=== PATIENT | male | born 1960 | race Caucasian/White ===

== ENCOUNTER 2018-05-22 21:17 | Emergency (ER) | payer BC ==
[2018-05-22 21:21] VITALS: BP 147/99
--- NOTE | 2018-05-22 21:24 | ER Report ---
History and Physical Time Seen By MD: 21:20 HPI/ROS CHIEF COMPLAINT: Back pain HISTORY OF PRESENT ILLNESS: 58-year-old male presents ambulatory to the ER complaining of right scapular back pain. Patient was chopping wood when he felt a tearing sensation in his upper back. Patient's been trying ibuprofen and some leftover Tylenol with Codeine that his doctor prescribes for torn right rotator cuff. He rarely uses them. His doctor advises surgery for repair of the rotator cuff. Patient's been reluctant. Patient notes no difficulty breathing. Patient notes no fever or chills. Patient denies dysuria , frequency or hematuria. Patient points to the right scapular muscles. He notes aggravation of pain with movement of his shoulder and trunk. REVIEW OF SYSTEMS: Respiratory: No cough, no dyspnea. Cardiovascular: No chest pain, no palpitations. Gastrointestinal: No vomiting, no abdominal pain. Musculoskeletal: As above Allergies: Coded Allergies: naproxen (Verified Adverse Reaction, Unknown, 05/22/18) ANXIOUS Home Meds Active Scripts Methocarbamol (ROBAXIN-750) 750 Mg Tablet, 1-2 TAB PO TID Y for muscle spasm relief, #20 Prov:MAUREEN CHOW DO 05/22/18 Hydrocodone Bit/Acetaminophen (NORCO 10-325 TABLET) 1 Each Tablet, 1 EACH PO Q4H Y for PAIN, #12 Prov:MAUREEN CHOW DO 05/22/18 Past Medical/Surgical History Right rotator cuff tear, total knee replacement Reviewed Nurses Notes: Yes Old Medical Records Reviewed: Yes Constitutional Vital Sign - Last 24 Hours 05/22/18 21:21 Temp 98.0 Pulse 64 Resp 18 B/P (MAP) 147/99 Pulse Ox 96 O2 Delivery Room Air Physical Exam General Appearance: The patient is alert, has no immediate need for airway protection and no current signs of toxicity. Vital signs stable, afebrile, pulse ox normal Eyes: Pupils equal and round no injection. Respiratory: Chest is non tender, lungs are clear to auscultation. No chest wall tenderness Cardiac: regular rate and rhythm Gastrointestinal: Abdomen is soft and non tender, no masses, bowel sounds normal. Musculoskeletal: Neck: Neck is supple and non tender. Back: Palpation of the thoracic paraspinous musculature reveals tenderness on the right and around the scapular muscles extending into the right trapezius muscle. There is no tenderness on palpation of the right shoulder Extremities have full range of motion and are non tender. Skin: No rashes or lesions. DIFFERENTIAL DIAGNOSIS: After history and physical exam differential diagnosis was considered for sprain, strain, contusion, dislocation, muscle tear, back strain Medical Decision Making ED Course/Re-evaluation ED Course Patient was admitted to an examination room. H&P was done. The differential diagnosis was considered. On clinical examination. Patient has muscular pain on examination. Patient is no conical signs of intrathoracic problem such as pneumonia or pulmonary embolism. She'll be treated with Robaxin and [place] for pain relief. He is advised to maximize ibuprofen to 600 mg 3 times daily with food. Patient's advised heating pad to help the muscles relax. Patient advised to follow-up with primary care. Upon returning home. Decision to Disposition Date: May 22, 2018 Decision to Disposition Time: 21:32 Depart Departure Latest Vital Signs Vital Signs Date Time Temp Pulse Resp B/P (MAP) Pulse Ox O2 Delivery O2 Flow Rate FiO2 05/22/18 21:21 98.0 64 18 147/99 96 Room Air Impression: Primary Impression: Strain of thoracic spine Additional Impression: Rotator cuff tear, right Condition: Improved Disposition: HOME OR SELF-CARE New Scripts Methocarbamol (ROBAXIN-750) 750 Mg Tablet 1-2 TAB PO TID Y for muscle spasm relief, #20 Prov: MAUREEN CHOW DO 05/22/18 Hydrocodone Bit/Acetaminophen (NORCO 10-325 TABLET) 1 Each Tablet 1 EACH PO Q4H Y for PAIN, #12 Prov: MAUREEN CHOW DO 05/22/18 Patient Instructions: Thoracic Back Strain (ED) Additional Instructions: Continue ibuprofen 200 mg 3-4 tablets 3 times a day with food You warm or hot compresses to the affected back area Follow-up with your primary care doctor upon returning home to [place] Problem Qualifiers Primary Impression: Strain of thoracic spine Encounter type: initial encounter Qualified Codes: S29.019A - Strain of muscle and tendon of unspecified wall of thorax, initial encounter Additional Impression: Rotator cuff tear, right Rotator cuff tear extent: unspecified tear extent Qualified Codes: M75.101 - Unspecified rotator cuff tear or rupture of right shoulder, not specified as traumatic MAUREEN CHOW DO May 22, 2018 21:24
[2018-05-22] MEDS ORDERED: HYDR-4305 PO (21:35)
[2018-05-22] MEDS ORDERED: METH-543 PO (21:35)
[2018-05-22] MEDS ORDERED: METHOCARBAMOL 500 MG TAB PO ONE (21:40)
[2018-05-22] MEDS ORDERED: APAP/HYDROCODONE 325/10 TAB PO ONE (21:40)
== END 2018-05-22 21:54 | disposition home or self-care (01) ==
LOC: ER 21:24
DX: S29.019A Strain of muscle and tendon of unspecified wall of thorax, initial encounter (principal); M75.101 Unspecified rotator cuff tear or rupture of right shoulder, not specified as traumatic
CPT/HCPCS: 99283